=== PATIENT | male | born 1995 | race Caucasian/White ===

== ENCOUNTER 2020-08-19 07:01 | Emergency (ER) | payer OTHER, SELFPAY ==
[2020-08-19 07:03] VITALS: BP 143/87; PULSE 89; RESP 16; TEMP 36.7; O2SAT 100; BMI 30.7
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
--- NOTE | 2020-08-19 09:26 | ED.DEP ---
ED Disposition - Plan for ED Patient: Disposition: Home or Assisted Living Instructions: ED Jaw Fracture Prescriptions: Hydrocodone Bitart/Apap 5-325 [[place] 5MG-325MG] 1 - 2 tab PO Q4H PRN PRN 5 Days #20 tab PRN Reason: Pain Prescription Printed Referrals: Bryon Bernal DDS [STAFF PHYSICIAN] - As soon as possible Additional Instructions: Call Dr. Luca Bernal, he is a oral surgeon in [place] and he can fix your jaw fracture. Ice to your jaw. Motrin and limited [place] for pain.
== END 2020-08-19 09:46 | disposition home or self-care (01) ==
PROVIDERS: Emergency Provider Emergency Medicine
DX: S02.652A Fracture of angle of left mandible, initial encounter for closed fracture (principal); S16.1XXA Strain of muscle, fascia and tendon at neck level, initial encounter; S20.211A Contusion of right front wall of thorax, initial encounter; V80.918A Animal-rider injured in other transport accident, initial encounter; Y93.I9 Activity, other involving external motion; Y92.9 Unspecified place or not applicable; Y99.8 Other external cause status; Z72.0 Tobacco use
CPT/HCPCS: 70450; 70486; 71046; 72125; 99282

== ENCOUNTER 2020-08-27 11:54 | Day surgery (SDC) | payer OTHER, SELFPAY ==
[2020-08-27] VITALS (8 sets, daily range): BP systolic 107–131; BP diastolic 64–79; PULSE 57–88; RESP 12–16; TEMP 36.1–36.6; O2SAT 97–100; BMI 30.5
[2020-08-27] MEDS: Lactated Ringers 1,000 ML 100 ML IV ×2 (12:56→15:41)
[2020-08-27 13:08] LABS: Absolute Lymphocyte Count 1.54 X10^3/uL (0.83-4.51); Absolute Neutrophil Count 4.8 X10^3/uL (2.0-7.7); Basophil# 0.03 X10^3/uL; Basophil% 0.4 % (0-1); Eosinophil# 0.13 X10^3/uL; Eosinophils% 1.9 % (0-5); Hematocrit 42.4 % (40-54); Hemoglobin 14.7 g/dL (13.0-16.5); Lymphocyte # 1.54 X10^3/ul (4.0); Mean Corp Hgb Conc 34.7 g/dL (32-36); Mean Corpuscular Hgb 29.1 pg (27.0-32.0); Mean Corpuscular Volume 83.8 fL (80-94); Mean Platelet Vol. 9.7 fl (6.2-12.0); Monocyte# 0.53 X10^3/uL; Monocyte% 7.6 % (0-10); NRBC Flagged by Analyzer 0 % (0-5); Neutrophil # 4.76 X10^3/uL (2.7-7.7); Neutrophil % 67.8 % (47-70); Platelet Count 307 K/mm3 (150-450); RBC Distribution Width CV 11.9 % (11.6-14.6); RBC Distribution Width SD 35.9 fl (35.1-43.9); Red Blood Count 5.06 M/mm3 (4.6-6.2)
[2020-08-27] MEDS: Bupiv/Epi 0.5% Mpf 30 ML Vial (14:30)
[2020-08-27] MEDS: Lidocaine 2% /Epi 1:100 (50ml) 50 ML Vial (15:02)
--- NOTE | 2020-08-27 15:47 | OP.PCM_ITS ---
Problem List (1) Fracture, mandible Status: Acute (2) Fracture of mandible involving dental socket Status: Acute Report of Operation Date of Procedure: 08/27/20 Pre-Operative Diagnosis: Bilateral Mandible Fractures Surgery/Procedure Performed:: Closed reduction left mandibular condyle open reduction right mandibular body fracture Type of Anesthesia:: General Estimated Blood Loss (mL): minimal Fluids Replaced: see anesthesia report Description of Procedure: Patient identified in pre op hold area, where a detailed discussion involving the procedure was outlined as it was in my office. Patient agrees and consent obtained. Patient taken to operating room and placed in supine position on the t able. Monitors placed and attempted nasal intubation was aborted and an oral intubation was performed. After the patient was prepped and draped local anesthesia was administered in the vestibule of the maxilla and mandible. Gilmar arch bars were fashioned to fit and the bars stabilized to the dentition with 26 ga wire. The patient was then placed into IMF. After occlusion was verified an incision was made in the right mandibular body region and the fracture was stabilized with 26 gauge wire. The incision was closed. At this time the left subcondylar fracture was manipulated into the best approximation then the IMF was secured. The procedure went without complications and then the patient awakened in the OR and extubated. He was taken to the recovery room in stable condition.
[2020-08-27] MEDS: Ketorolac 30 MG/ML Syringe IV (16:42)
== END 2020-08-27 18:55 | disposition home or self-care (01) ==
LOC: SDC 11:54 → AC 11:55
PROVIDERS: Referring Provider Dentist Oral and Maxillofacial Surgery; Visit Provider Dentist Oral and Maxillofacial Surgery
PROC: (CPT 21451; principal; 2020-08-27 13:15)
DX: S02.601A Fracture of unspecified part of body of right mandible, initial encounter for closed fracture (principal); S02.612A Fracture of condylar process of left mandible, initial encounter for closed fracture; V80.919A Animal-rider injured in unspecified transport accident, initial encounter; Y93.I9 Activity, other involving external motion; Y92.9 Unspecified place or not applicable; Y99.8 Other external cause status; F17.200 Nicotine dependence, unspecified, uncomplicated; Z20.822 Contact with and (suspected) exposure to COVID-19
CPT/HCPCS: 00190; 21451; 21461; 85025; 87426; C9803; J7120; J2405

== ENCOUNTER 2022-04-01 09:07 | Day surgery (SDC) | payer OTHER, SELFPAY ==
[2022-04-01 09:47] VITALS: BP 125/58; PULSE 60; RESP 18; TEMP 36.7; O2SAT 100; BMI 28.6
[2022-04-01] MEDS: Lactated Ringers 1,000 ML 15 ML IV (10:03)
[2022-04-01] MEDS: Cefazolin 2 GM in 0.9% Normal Saline 100 ML IV (10:43)
--- NOTE | 2022-04-01 10:55 | RAD_ITS ---
INDICATION: FX EXAMINATION/TECHNIQUE: X-RAY - LEFT XR Wrist 2 Views 8 VIEWS COMPARISON: None. FLUOROSCOPY TIME: 8.3 seconds. FLUOROSCOPY DOSE: 0.27. MGy FINDINGS: 3 spot fluoroscopic images were obtained intraoperatively. Images demonstrate plate and screws internally fixating the radial diaphysis. No radiologist was present for the procedure, please refer to operative report for details. RAD/Wrist 2 Views IMPRESSION: Please refer to operative report for details. Electronically Signed: Jacob Nolasco MD at 13:30 EDT ,
[2022-04-01 12:38] VITALS: BP 125/58; BP 138/81; PULSE 69; RESP 17; TEMP 36.7; O2SAT 92
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
--- NOTE | 2022-04-01 12:41 | DCINST_ITS ---
Discharge Instructions Follow Up Care Test Results: Test results from this visit will be discussed in further detail at your follow- up appointment, if applicable. Discharge Plan Admission Primary Reason for Your Visit: Left forearm surgery Attending Provider: Gee Montejo Primary Care Provider: Care Physician,Katerina Primary Instructions Additional Instructions / Restrictions: Follow preprinted instructions from your surgeons office Discharge Orders/Prescriptions Prescriptions: No Action oxycodone-acetaminophen 5-325 mg tablet 1 tab PO Q6H PRN PRN (Reason: Pain) Label Comments: TAKE 1 TABLET BY MOUTH EVERY 6 HOURS NEEDED FOR PAIN Referrals / Follow Up: Gee Montejo DO [Med Staff - Active Staff] - Within 2 Weeks Care Physician,No Primary [Primary Care Provider] - Disposition Disposition (needs filled in before D/C Order can be placed): Home, Self Care
[2022-04-01 12:45] VITALS: BP 125/58; BP 133/68; PULSE 62; RESP 16; O2SAT 95
[2022-04-01] MEDS: Ketorolac 15 MG/ML Vial IV (12:52)
[2022-04-01 13:15] VITALS: BP 124/73; BP 125/58; PULSE 60; RESP 16; O2SAT 97
[2022-04-01 13:21] VITALS: BP 125/58; BP 125/73; PULSE 62; RESP 18; TEMP 36.3; O2SAT 96
[2022-04-01 13:30] VITALS: BP 125/58
== END 2022-04-01 14:04 | disposition home or self-care (01) ==
LOC: SDC 09:09 → AC 09:11
PROVIDERS: Referring Provider Student in an Organized Health Care Education/Training Program; Visit Provider Student in an Organized Health Care Education/Training Program
PROC: (CPT 25515; principal; 2022-04-01 10:45)
DX: S52.332A Displaced oblique fracture of shaft of left radius, initial encounter for closed fracture (principal); W50.0XXA Accidental hit or strike by another person, initial encounter; Y93.64 Activity, baseball; Y99.8 Other external cause status; F17.210 Nicotine dependence, cigarettes, uncomplicated; E66.3 Overweight; Z68.29 Body mass index [BMI] 29.0-29.9, adult; Z71.3 Dietary counseling and surveillance; R03.0 Elevated blood-pressure reading, without diagnosis of hypertension
CPT/HCPCS: 25515; 01830; 64417; 73100; 76000; C1776; J7120

== ENCOUNTER 2024-12-23 15:48 | Emergency (ER) | payer OTHER, SELFPAY ==
[2024-12-23 15:50] VITALS: BP 120/77; PULSE 76; RESP 16; TEMP 36.9; O2SAT 99; BMI 31.0
--- NOTE | 2024-12-23 16:00 | CM.ED ---
Social Work Date of referral: 12/23/24 Reason for referral: No PCP Referred by: Social Work identification Patient provided consent to social work visit. Straightening Machine Operator provided patient with a written handout for [facility] which patient accepted and expressed appreciation for. No other concerns/requests noted at this time. Luna Payan, ROTATING EQUIPMENT ENGINEER, [employer]
--- OUTSIDE RECORDS SUMMARY | 2024-12-23 16:09 | XMS RPT_ITS | CCD ---
Author Organization [facility] CliniSyvt Care Team Providers Care Genetic Supervisor Name Role Phone JED JIANG Unavailable Unavaila ble JED JIANG Unavailable Unavaila ble Spittle, Gee Referring Unavailable Spittle, Gee Attending Unavailable Care Physician, No Primary Primary Care Unava ilable SPITTLE, GEE DO Admitting Unavailable SPITTLE, GEE GUILLEN Attending Unavailable SPITTLE, GEE DO Primary Care Unavailable GEORGINA FRIEDMAN Consulting Unavailable PROVIDER, UNKNOWN Consulting Unavailable PROVIDER, UNKNOWN Consulting Unavailable PROVIDER, UNKNOWN Consulting Unavailable JESSICA, DR AGNES Blood Admitting Unavaila ble JESSICA, DR AGNES Blood Attending Unavaila ble JESSICA, DR AGNES Blood Primary Care Unavaila ble FRIEDMAN, GEORGINA Streeter Consulting Unavailable FRIEDMAN, GEORGINA Streeter Referring Unavailable PROVIDER, UNKNOWN Consulting Unavailable PROVIDER, UNKNOWN Consulting Unavailable PROVIDER, UNKNOWN Consulting Unavailable FRIEDMAN, DR WILLIAM Sewell Admitting Unavailable FRIEDMAN, DR WILLIAM Sewell Attending Unavailable FRIEDMAN, DR WILLIAM Sewell Primary Care Unavailable FRIEDMAN, GEORGINA T Consulting Unavailable PROVIDER, UNKNOWN Consulting Unavailable PROVIDER, UNKNOWN Consulting Unavailable PROVIDER, UNKNOWN Consulting Unavailable Medications Current Medications Medication Drug Class(es) Dates Sig (Normalized) Sig (Original) acetaminophen 325 mg / oxyCODONE hydrochloride 5 mg oral tablet (1 source) Opioid Agonist Start: 03-31-2022 take 1 tablet by mouth every six hours as needed Oxycodone-Acetami nophen Active 1 TABLET PO EVERY 6 HOURS NEEDED March 31, 2022 12:00am Completed/Discontinued Medications Medication Drug Class(es) Dates Sig (Normalized) Sig (Original) acetaminophen 325 mg / HYDROcodone bitartrate 5 mg oral tablet (1 source) Opioid Agonist Start: 08-19-2020 End: 08-24-2020 take 1 tablet by mouth every four hours as needed Hydrocodone-Acetami nophen Discontinued 1 - 2 TABLET PO EVERY 4 HOURS NEEDED 20 5 August 19, 2020 August 24, 2020 1:03am Problems Active Problems Problem Classification Problem Date Documented Da te Episodic/Chronic Fracture of upper limb (4 sources) Displaced oblique fracture of shaft of left radius, initial encounter for closed fracture; Translations: [Displaced oblique fracture of shaft of left radius, subsequent encounter for closed fracture with routine healing] Onset: 04-06-2022 Episodic Skull and face fractures (2 sources) Fracture of mandible involving dental socket; Translations: [Fracture of alveolus of mandible, unspecified side, initial encounter for closed fracture] Episodic Unclassified (1 source) Unknown / UNK(Unknown) Onset: 03-26-2017 Past or Other Problems Problem Classification Problem Date Documented Da te Episodic/Chronic Unclassified (1 source) SINUS ISSUES Onset: 03-26-2017 Results Test Name Value Interpretation Reference Range [facility] EMERGENCY REPORTon 2 EMERGENCY REPORT [facility] EMERGENCY ROOM REPORT NAME ACCOUNT SEX AGE ADMIT DISCHARGE PT MED. RECORD# NUMBER DATE DATE TYPE DENISE [id number] Kortney 26 03/28/22 03/28/22 3 LAWRENCE Mercedes [address] ROOM: ER DATE OF : 1995 DICTATING PHYSICIAN: William Friedman CHIEF COMPLAINT: Left arm pain. HISTORY OF PRESENT ILLNESS: The patient was seen here yesterday after a fracture sustained to the left forearm. He returns today stated that he is having more pain, especially since awakening this morning. He was afraid that maybe he slept on it wrong and it came out of place. The pain is across the forearm radiating down into the hand and fingers, particularly the thumb area. He has minimal tingling to the tips of his fingers. He is able to move his fingers, but has more pain moving his thumb today than he did yesterday. He did not have any known new injury or trauma to the arm. No other complaints. PAST MEDICAL HISTORY: Past medical history is significant for previous wrist fracture, but no ongoing medical problems. SOCIAL HISTORY: He does smoke. He does not drink alcohol. He is accompanied here with his . PHYSICAL EXAMINATION: GENERAL: This is a pleasant 27-year-old thin male alert, appropriate, and appears uncomfortable, but not toxic. SKIN: His skin is pink, warm, and dry. VITAL SIGNS: All within normal limits. EXTREMITIES: Exam is focused to the left upper extremity. Gross exam to the arm reveals a splinted and slinged left arm, and his hand and fingertips are pink, minimally cool, but good capillary refill. No gross deformity. I did remove the dressing, splint, and the sling to get a good view of the arm. There was no obvious deformity. He does have some mild, though not marked swelling at the forearm area and tenderness with palpation to the mid distal forearm diffusely. Skin is intact. He has good sensation distally. Range of motion is essentially normal, though with pain. No appreciable increased or severe pain with passive motion to his finger and thumb. DIAGNOSTIC DATA: A repeat x-ray was done which did not show any change from the x-ray of how things looked yesterday. EMERGENCY DEPARTMENT COURSE AND TREATMENT: I did give him a dose of Dilaudid and Toradol IV, which did help with his pain. He does have Percocet at home, which he took. I then placed a little more padding along the forearm and replaced his splint using 3-0 volar OCL splint along the forearm and a long arm posterior 5 inch OCL. Page 1 of 2 LAWRENCE WALKER Emergency Room Report LAWRENCE WALKER : 1995 He had complained of some discomfort at the elbow, and I used more padding in that area. There were no reddened or abnormal skin lesions seen. The splint was placed at about 90 degrees, and his forearm splint replaced. DIAGNOSIS: Left forearm fracture with ongoing pain, no evidence of any compartment syndrome or new injury. PLAN/DISPOSITION: He was discharged to home. He is to followup with [facility] tomorrow, calling in the morning for an appointment. He was referral to Dr. Montejo by Dr. Rojas yesterday. Ice and elevation to the area. Dictated By: William Friedman MD 03/28/22 11:32 JOB #: [id number] Transcribed By: am 03/29/22 12:41 Electronically signed by: LEVON Friedman M.D. 04/02/22 08:45 Page 2 of 2 LAWRENCE WALKER Emergency Room Report Normal [facility] Discharge Instructionon 03-12 Discharge Instruction [facility] Medical Records Department [address] [place] [address] Instructions for Home/Discharge Instructions 04/01/22 1241 MR#: [id number] Acct: [id number] Name: LAWRENCE WALKER Rep #: [id number] : 1995 26 From: Gee Montejo DO PCP: Care Physician,No Primary Status:[facility] Discharge Instructions Follow Up Care Test Results: Test results from this visit will be discussed in further detail at your follow-up appointment, if applicable. Discharge Plan Admission Primary Reason for Your Visit: Left forearm surgery Attending Provider: Gee Montejo Primary Care Provider: Care Physician,No Primary Instructions Additional Instructions / Restrictions: Follow preprinted instructions from your surgeons office Discharge Orders/Prescriptions Prescriptions: No Action oxycodone-acetaminoph en 5-325 mg tablet 1 tab PO Q6H PRN PRN (Reason: Pain) Label Comments: TAKE 1 TABLET BY MOUTH EVERY 6 HOURS NEEDED FOR PAIN Referrals / Follow Up: Gee Montejo DO [Med Staff - Active Staff] - Within 2 Weeks Care Physician,No Primary [Primary Care Provider] - Disposition Disposition (needs filled in before D/C Order can be placed): Home, Self Care 04/01/22 1241 Gee Montejo DO CC: No Primary Care Physician Signed [facility] Operative Reporton 2 Operative Report [facility] Medical Records Department [address] [place] [address] Operative Report 04/01/22 1241 MR#: [id number] Acct: [id number] Name: LAWRENCE WALKER Rep #: [id number] : 1995 26 From: Gee Montejo DO PCP: Care Physician,No Primary Status:[facility] Location: [place] [address] Report of Operation Date of Procedure: 04/01/22 Description of Surgical Findings:: Preoperative diagnosis: Left radial shaft fracture Postoperative diagnosis: Left radial shaft fracture Procedure: Open reduction internal fixation left radial shaft Surgeon: Gee Montejo DO Assembly Line Worker: Karen Morrison PA-C Anesthesia: General endotracheal with axillary block Anesthesiologist: Dr. Richard Complications: None Drains: None Estimated blood loss: 25 cc Urinary output: None recorded IV fluids: 800 cc crystalloid Specimens: None Surgical implants: Synthes 3.5 mm LCDC 7 hole plate with cortical screws x6 Surgical indications: This is an otherwise healthy 26-year-old male sustained a left forearm fracture playing baseball when he went for a fly ball with an extended gloved hand approximately 5 days ago. The glove hand sustained a axial load via the backstop. He noted immediate pain in his forearm. X-rays were obtained from [facility] demonstrated a displaced radial shaft fracture. The DRUJ appeared unremarkable on plain films. Patient was neurovascular intact. He was splinted. He followed-up in my office. Given the amount of angulation and risk of nonoperative management with regards to stiffness and loss of motion as well as nonunion, operative intervention in the form of left radius open reduction internal fixation was offered. The risks, benefits, alternatives to procedure reviewed with patient at length and he agreed to proceed. Risks included but were not limited to bleeding, flexion, loss of life or limb, need for additional surgery, persistent pain, persistent stiffness, neurovascular injury, DVT or PE. Patient expressed understanding his risk and wished proceed with surgery. Informed sent obtained in the outpatient setting. Description of procedure: Patient was seen in preoperative holding area. He was identified by name, medical record number, date of . The operative extremity was marked with a surgical marker. We confirmed informed consent with the patient and all questions were answered to his satisfaction. An axillary block was placed in the PACU by anesthesia staff for intraoperative and postoperative analgesia. At time of his procedure, patient was brought to the operative suite and positioned supine on a standard operating table. All bony prominences were well-padded. General anesthesia was administered and endotracheal tube placed. After adequate anesthesia, a well-padded pneumatic tourniquet was applied to the upper arm of the operative extremity. We then spun the bed 90 degrees. We prepped and draped the operative extremity in a normal, sterile orthopedic fashion. We then performed a timeout with all parties in attendance in agreement the side, site, and operation be performed. No concerns were voiced and we elected to proceed. 2 g Ancef IV was administered for antibiotic prophylaxis prior to the incision by anesthesia staff. I first exsanguinated the operative extremity with an Esmarch bandage. Tourniquet was inflated to 250 mmHg. Esmarch was removed. I planned a modified volar Wliy approach to the distal third of the radial shaft. Incision was marked in line with the radial styloid to the biceps tendon. Approximately 10 cm incision was made sharply through skin and subcutaneous tissue. Posterior carpi radialis volar tendon sheath was identified and split in line with the tendon. The tendon was retracted ulnarly. I split the deep fascia of the FCR tendon sheath. Flexor pollicis longus was encountered and its muscle belly was swept ulnarly. I then dissected the radial artery and accompanying veins. These were skeletonized and radial sided branches were ligated with bipolar cautery. I then identified the pronator quadratus which was able to be maintained given the level of the fracture. I then bluntly dissected proximally. I worked lateral to the neurovascular bundle. Brachioradialis was retracted radially. Pronator teres insertion was identified and elevated with a Osborn elevator. Fracture site was encountered. Fracture site was debrided from interposed periosteum and debris was irrigated free. I anatomically reduced the fracture site with a pointed reduction tenaculum. A 7 hole 3.5 mm LCDC plate was selected from [employer]. This was held in place provisionally with lobster claws. I drilled a concentric cortical screw in the distal segment to compress the plate to bone. I then fine-tune our reduction confirm anatomic reduction. I placed an eccentric compression bicortical kiera (more content not included)... [facility] Wrist 2 Viewson 04-01-2022 Wrist 2 Views [facility] Imaging Services [address] [place] [address] Wrist 2 Views MR#: [id number] Acct: [id number] Name: LAWRENCE WALKER Rep #: [id number] : 1995 M 26 From: Jacob Nolasco MD PCP: Care Physician,No Primary Status: [facility] Study: Wrist 2 Views Date of Exam: 04/01/22 Exam# [id number] Ordering Dr: Gee Montejo DO INDICATION: FX EXAMINATION/TECHNIQUE : X-RAY - LEFT XR Wrist 2 Views 8 VIEWS COMPARISON: None. FLUOROSCOPY TIME: 8.3 seconds. FLUOROSCOPY DOSE: 0.27. MGy __ FINDINGS: 3 spot fluoroscopic images were obtained intraoperatively. Images demonstrate plate and screws internally fixating the radial diaphysis. No radiologist was present for the procedure, please refer to operative report for details. RAD/Wrist 2 Views IMPRESSION: Please refer to operative report for details. Electronically Signed: Jacob Nolasco MD at 13:30 EDT , CC: Dr. Gee Montejo, DO; No Primary Care Physician Cartographic Engineer: Signed [facility] EMERGENCY REPORTon 2 EMERGENCY REPORT [facility] EMERGENCY ROOM REPORT NAME ACCOUNT SEX AGE ADMIT DISCHARGE PT MED. RECORD# NUMBER DATE DATE TYPE DENISE [id number] Kortney 26 03/27/22 03/27/22 3 LAWRENCE Mercedes [address] ROOM: ER DATE OF : 1995 DICTATING PHYSICIAN: Agnes Lopez CHIEF COMPLAINT/HISTORY OF PRESENT ILLNESS: Patient was playing softball early this morning and he ran into a backstop with his glove hand. He had pain in his arm around the radial aspect and presents to the emergency department. His pain is a 9 out of 10, worse with movement, better with rest. He is right hand dominant and presents to the emergency department. He did have a fracture of his right wrist in the past which required surgery. He actually said the pain is an 8 out of 10. It is a constant pain, sharp, stabbing, worse with movement, better with rest and presented to the emergency department. He does have some tingling to the right thumb. PAST SURGICAL HISTORY: He has had pins in his wrist. SOCIAL HISTORY: He does smoke. Denies alcohol use. REVIEW OF SYSTEMS: Ten systems reviewed and negative except mentioned above. PHYSICAL EXAMINATION: VITAL SIGNS: He is afebrile. Pulse 62, respirations 16, blood pressure 118/83, pulse oximetry 98% on room air. HEENT: Head is normocephalic, atraumatic. Eyes; pupils equal, round, active to light. Extraocular muscles intact. Nares are patent. Throat has adequate oral moisture. Uvula is midline. NECK: Supple without petechiae or rash. HEART: Without murmur. S1 equals S2. No S3 or S4 appreciated. LUNGS: Clear to auscultation bilaterally. No rales, rhonchi or retractions. ABDOMEN: Soft, nontender, nondistended. SKIN: Warm and dry. EMERGENCY DEPARTMENT COURSE AND TREATMENT: Risks and benefits were explained for reducing the patient. I gave him pain medication of Dilaudid. He was placed in traction with splint, which actually did improve the angulation on his radius. I did try to make it better and I did improve it but then I came off and one was even actually worse. It is improved with his angulation. I discuss this multiple times with Dr. Rojas. He does have some tingling in his thumb, it is unclear. That might be from the medication that I gave him. He is able to move his thumb. He is neurovascularly intact. Before I did try to reduce it, I was in the traction, I did anesthetize with Sensorcaine infused into the area where the fracture was. He was otherwise neurovascularly intact. At this time he will be discharged. I do not suspect he has compartment syndrome. He has no tenderness at the proximal aspect of the forearm. Dr. Rojas wanted to have him follow up with Dr. Montejo. He is to follow up with Dr. Montejo. Keep it iced, elevated, and return if increasing pain, problems, numbness or tingling. Will write him for Percocet for Page 1 of 2 LAWRENCE WALKER Emergency Room Report LAWRENCE WALKER : 1995 severe pain as well as Motrin for pain. DIAGNOSIS: Fracture radius, forearm fracture. PLAN/DISPOSITION: He will be discharged in stable condition. Dictated By: Agnes Lopez DO 03/27/22 12:24 JOB #: [id number] Transcribed By: adrien 03/28/22 08:58 Electronically signed by: LEVON Lopez DO 03/29/22 09:57 Page 2 of 2 LAWRENCE WALKER Emergency Room Report Normal [facility] 03-28-2022 [place] [address] Patient: LAWRENCE WALKER Phone#: : 1995 Age: 26 Gender: M Pt. Type: ER Account: [id number] Location: 052 Ordering: WILLIAM MORTOND Exam Date: 03/28/2022/10:14 Family Phys: GEORGINA FRIEDMAN Charge Code: [id number] Physician: Latah Order #: [id number] DLP Dose#: PROCEDURE: X-RAY FOREARM LT 2 VIEWS COMPARISON: [facility], XR, FOREARM LT, 03/27/2022, 11:12. INDICATIONS: Trauma. FINDINGS: BONES: Nondisplaced dorsally angulated fracture the mid radius is present. The joint space at the wrist and elbow are maintained. SOFT TISSUES: Negative. No visible soft tissue swelling. EFFUSION: None visible. OTHER: Negative. CONCLUSION: 1. Nondisplaced mildly dorsally angulated fracture of the mid radius. There has been no significant change since prior exam. Dictated by: Faiza Nguyen MD on 03/28/2022 at 15:31 Approved by: Faiza Nguyen MD on 03/28/2022 at 15:33 Normal [facility] FOREARM LTon 03-27-2022 FOREARM LT [address] [address] Patient: LAWRENCE WALKER Phone#: : 1995 Age: 26 Gender: M Pt. Type: ER Account: [id number] Location: 052 Ordering: AGNES LOPEZ Exam Date: 03/27/2022/11:12 Family Phys: GEORGINA MORTOND Charge Code: [id number] Physician: Latah Order #: [id number] DLP Dose#: PROCEDURE: X-RAY FOREARM LT 2 VIEWS COMPARISON: [facility], XR, FOREARM LT, 03/27/2022, 10:06. INDICATIONS: Post reduction. FINDINGS: BONES: Improved alignment. There is mild dorsal angulation of the distal fracture fragment of the mid radial fracture. There is mild lateral angulation at the fracture. Splint material somewhat obscures osseous detail. SOFT TISSUES: Negative. No visible soft tissue swelling. EFFUSION: None visible. OTHER: Negative. CONCLUSION: 1. Mild dorsal angulation of the distal fracture fragment of the mid radial fracture. Mild lateral angulation at the fracture. Dictated by: Madelin Munoz MD on 03/27/2022 at 16:49 Approved by: Madelin Munoz MD on 03/27/2022 at 16:52 [facility] FOREARM LT [address] [address] Patient: WALKER LAWRENCE Nadege Phone#: : 1995 Age: 26 Gender: M Pt. Type: ER Account: [id number] Location: [facility] Ordering: AGNES LOPEZ Exam Date: 03/27/2022/10:06 Family Phys: GEORGINA IDALIA Charge Code: [id number] Physician: Latah Order #: [id number] DLP Dose#: PROCEDURE: X-RAY FOREARM LT 2 VIEWS COMPARISON: [facility], XR, FOREARM LT, 03/27/2022, 9:32. INDICATIONS: Post reduction. FINDINGS: BONES: Multiple lateral views obtained. The final image demonstrates mild anterior angulation of the mid radial fracture. Overlying splint material somewhat obscures osseous detail. SOFT TISSUES: Negative. No visible soft tissue swelling. EFFUSION: None visible. OTHER: Negative. CONCLUSION: 1. Mild anterior angulation of the mid radial fracture following reduction Dictated by: Madelin Munoz MD on 03/27/2022 at 16:41 Approved by: Madelin Munoz MD on 03/27/2022 at 16:44 [facility] FOREARM LT [address] [address] Patient: WALKER LAWRENCE L. Phone#: : 1995 Age: 26 Gender: M Pt. Type: ER Account: [id number] Location: 052 Ordering: AGNES LOPEZ Exam Date: 03/27/2022/9:32 Family Phys: GEORGINA FRIEDMAN Charge Code: [id number] Physician: Latah Order #: [id number] DLP Dose#: PROCEDURE: X-RAY FOREARM LT 2 VIEWS COMPARISON: [facility], XR, FOREARM LT, 03/27/2022, 8:41. INDICATIONS: Post reduction. FINDINGS: BONES: Mid radial fracture improved alignment following reduction with persistent anterior angulation and mild lateral angulation SOFT TISSUES: Negative. No visible soft tissue swelling. EFFUSION: None visible. OTHER: Negative. CONCLUSION: 1. Improved but persistent anterior angulation mid radial fracture. Dictated by: Madelin Munoz MD on 03/27/2022 at 16:40 Approved by: Madelin Munoz MD on 03/27/2022 at 16:41 [facility] FOREARM LT [address] [address] Patient: LAWRENCE WALKER Phone#: : 1995 Age: 26 Gender: M Pt. Type: ER Account: [id number] Location: 052 Ordering: [facility] Exam Date: 03/27/2022/8:41 Family Phys: Charge Code: [id number] Physician: Latah Order #: [id number] DLP Dose#: PROCEDURE: X-RAY FOREARM LT 2 VIEWS COMPARISON: None. INDICATIONS: Trauma. FINDINGS: BONES: Fracture of the mid to distal radius. The fracture fragment is laterally and dorsally angulated. The ulna is intact. SOFT TISSUES: Negative. No visible soft tissue swelling. EFFUSION: None visible. OTHER: Negative. CONCLUSION: 1. Fracture of the mid radius with lateral and anterior angulation Dictated by: Madelin Munoz MD on 03/27/2022 at 14:40 Approved by: Madelin Munoz MD on 03/27/2022 at 14:41 [facility] WRIST COMPLETE LTon 03-27-20 WRIST COMPLETE LT [address] [address] Patient: LAWRENCE WALKER Phone#: : 1995 Age: 26 Gender: M Pt. Type: ER Account: [id number] Location: 052 Ordering: AGNES LOPEZ Exam Date: 03/27/2022/8:34 Family Phys: Charge Code: [id number] Physician: Latah Order #: [id number] DLP Dose#: PROCEDURE: X-RAY WRIST LT COMPLETE MIN 3 VIEWS COMPARISON: None. INDICATIONS: Arm injury. FINDINGS: BONES: Fracture of the mid to distal radius, incompletely evaluated on this exam. No acute osseous abnormality of the wrist. SOFT TISSUES: Negative. No visible soft tissue swelling. EFFUSION: None visible. OTHER: Negative. CONCLUSION: 1. No acute osseous abnormality of the wrist. Note: An acute wrist fracture may not be initially evident on radiograph. If there is persistent pain in 7-10 days recommend repeat radiograph. 2. Mid to distal radial fracture, please refer to forearm report performed same day. Dictated by: Madelin Munoz MD on 03/27/2022 at 14:39 Approved by: Madelin Munoz MD on 03/27/2022 at 14:40 Normal [facility] Vital Signs Date Time Vital Sign Value Performing Clinician Kin neal 04-01-2022 13:21-0400 Body temperature 97.4 [degF] [facility] Work Phone: 04-01-2022 13:21-0400 Diastolic blood pressure 73 mm[Hg] [facility] Work Phone: 04-01-2022 13:21-0400 Heart rate 62 /min [facility] Work Phone: 04-01-2022 13:21-0400 Respiratory rate 18 /min [facility] Work Phone: 04-01-2022 13:21-0400 SaO2% (BldA) [Mass fraction] 96 % [facility] Work Phone: 04-01-2022 13:21-0400 Systolic blood pressure 125 mm[Hg] [facility] Work Phone: 04-01-2022 09:47-0400 Body height 175.26 cm [facility] Work Phone: 04-01-2022 09:47-0400 Body mass index (BMI) [Ratio] 28.6 kg/m2 [facility] Work Phone: 04-01-2022 09:47-0400 Body weight 87.99 kg [facility] Work Phone: Encounters Encounter Date Encounter Type Care Provider Facility Start: 04-14-2022 End: 06-21-2022 ambulatory [facility] Start: 04-01-2022 End: 04-01-2022 ambulatory [facility] Facility:[facility] Start: 04-01-2022 End: 04-01-2022 Admission to same day surgery center [facility] Start: 04-01-2022 End: 04-01-2022 ambulatory [facility] Work Phone: Start: 03-28-2022 End: 03-28-2022 Emergency department patient visit DR WILLIAM FRIEDMAN [facility] Start: 03-27-2022 End: 03-27-2022 Emergency department patient visit DR AGNES LOPEZ [facility] Start: 03-26-2017 Ambulatory PATRICA-BO JIANG Facility:[facility] Procedures Date Procedure Procedure Detail Performing Clinician Start: 04-01-2022 Open reduction of fr acture of radius with internal fixation Start: 04-01-2022 Fluoroscopic guidance Start: 04-01-2022 Plain x-ray of wrist Plan of Treatment Date Care Activity Detail Author Start: 04-01-2022 Application of ice c ollar, cap or bag [facility] Work Phone: Start: 04-01-2022 Catheterization of vein [facility] Work Phone: Start: 04-01-2022 Elevation of affected extremity [facility] Work Phone: Start: 04-01-2022 Following clinical p athway protocol [facility] Work Phone: Start: 04-01-2022 Patient discharge [facility] Work Phone: Start: 04-01-2022 Procedure discontinued [facility] Work Phone: Start: 04-01-2022 Taking patient vital signs [facility] Work Phone: Start: 04-01-2022 Vital signs measurements [facility] Work Phone: Start: 04-01-2022 [place] [facility] Work Phone: Start: 04-01-2022 Medication education [facility] Work Phone: Patient referral [facility] Work Phone: Payers Date Payer Category Payer Self-pay [id number] 2022 Unknown [id number] 1993 Unknown [id number] 1995 Unknown [id number] 1993 Unknown [id number] Unknown [id number] Social History Date Type Detail Facility Start: 04-01-2022 Tobacco smoking stat [facility] Unknown if ever smoked [facility] Work Phone: Start: 08-25-2020 Cigarettes;Vapor [facility] Work Phone: Start: 1995 Sex Assigned At Male [facility] Work Phone: Goals Date Patient Goal Desired Activity /State Mental Status Date Assessment Result Facility 04-01-2022 Cognitive function Voice/Name [place] [facility]: Evaluation note Note Date & Type Note Facility Evaluation note No assessment information availa ble [facility] Work Phone: Hospital Discharge instructions Note Date & Type Note Facility Hospital Discharge instructions Additional Instructions Follow preprinted instructions from your surgeons office Implant Used?: Yes [facility] Work Phone: Summary Purpose Family History No Family History Records FoundNo Family History Records FoundNo Family History Records Found Advance Directives No Advanced Directives Records Found Advance Directive Response Recorded Date/ Time Living Will No April 01, 2022 9:27am Power of Sewing Machine Attachment Tester No March 9:27am Additional Source Comments (unrecognized sect ion and content) No Status Records FoundNo Status Records FoundNo Status Records Found INFORMATION SOURCE (unrecogn ized section and content) DATE CREATED AUTHOR 01/04/2018 [facility] DATE CREATED AUTHOR AUTHOR'S ORGANIZ ATION 04/11/2022 [facility] DATE CREATED AUTHOR AUTHOR'S ORGANIZ ATION 06/21/2022 [facility] FOR RECORDS PERTAINING TO PATIENTS WHO ARE OR HAVE BEEN ENROLLED IN A CHEMICAL DEPENDENCY/SUBSTANCEABUSE PROGRAM, SOME INFORMATION MAY BE OMITTED. This clinical summary was aggregated from multiple sources. Caution should be exercised in using it in the provision of clinical care. This summary normalizes information from multiple sources, and as a consequence, information in this document may materially change the coding, format and clinical context of patient data. In addition, data may be omitted in some cases. CLINICAL DECISIONS SHOULD BE BASED ON THE PRIMARY CLINICAL RECORDS. [facility] [employer] [facility]. provides no warranty or guarantee of the accuracy or completeness of information in this document.
--- NOTE | 2024-12-23 17:01 | EDS_ITS ---
HPI History of Present Illness HPI Narrative: Patient presents with pain to his left posterior thigh that occurred 2 days ago. Patient states he was playing ball and felt something pop in his posterior thigh at that time. Patient describes the pain as sharp and burning. Patient states it is worse with extension of his knee and the hip. Patient states it is better with flexion of his knee. Patient denies any paresthesias or weakness. Patient also states that he is having difficulty bearing weight because of the pain. Patient denies any other injuries. Chief Complaint: Lower Extremity Injury Onset/Context/Timing Onset: Days (2 days ago) Context: Sudden Onset Timing: Continuous Quality of Pain: Sharp and Burning Location: Left posterior thigh Worsened by: Flexion of hip and extension of knee Relieved by: Flexion of the knee and rest Associated Symptoms Associated Symptoms: Negative for Parasthesia, Weakness or Loss of Funtion PFSH [facility] Medical History Wears glasses Alcohol use Gastric reflux Smoker PONV (postoperative nausea and vomiting) Home Medications ?Medication ?Instructions ?Recorded ?Last Taken ?Type naproxen 500 mg tablet (Naprosyn) 500 mg PO BID PRN pa in #20 tabs 12/23/24 Unknown Rx Allergy/AdvReac Type Severity Reaction Status Date / Time No Known Allergies Allergy Verified 12/23/24 15:52 Surgical History History of surgery on arm History of mandibular surgery Social History Smoking Status: Current every day smoker tobacco type: cigarettes ROS ROS ED Constitutional Constitutional ED: Denies chills or fever(s) Eyes Eyes: Denies blurry vision or change in vision ENT ENT ED: Denies rhinorrhea or sore throat Cardiovascular Cardiovascular: Denies chest pain or palpitations Respiratory/Chest Respiratory/Chest: Denies cough or dyspnea Gastrointestinal Gastrointestinal: Denies nausea or vomiting Genitourinary Genitourinary ED: Denies dysuria or hematuria Musculoskeletal Musculoskeletal: Denies back pain or neck pain Integumentary Denies abscess or rash Neurologic Neurologic: Denies headache(s) or weakness Allergic/Immunologic Allergic/Immunologic ED: Denies mouth swelling or urticaria EXAM Physical Exam Const Vital Signs: 12/23/24 15:50 Temperature 98.4 F Temperature Source Oral Pulse Rate 76 Respiratory Rate 16 Blood Pressure 120/77 Blood Pressure Mean 91 Pulse Ox 99 Oxygen Delivery Method Room Air Positive well nourished and well developed General Appearance ED: well developed and NAD HEENT Reports moist mucous membranes normocephalic and atraumatic Neck full ROM and supple Extremity Extremity Narrative: There is tenderness over the posterior aspect of the left flank. There is no edema or ecchymosis. There is no bony crepitance or step-off. There is no pain over the left hip or left knee. Range of motion was limited in extension of the left knee secondary to pain. There is no pain with internal or external rotation of the left hip. There is pain with resistive flexion of the knee and resistive extension of the hip. Strength is 5/5 bilateral in the lower extremities. There are no sensory deficits noted. Pedal pulses are equal bilaterally. Neuro oriented x3, CN's II-XII intact bilaterally, moves all extremities and no sensory deficits noted Sensorium / Orientation: alert Motor Exam: strength 5/5 throughout Psych mental status grossly normal MDM MDM MDM Narrative Medical decision making narrative: Smoking cessation was briefly discussed. Patient was advised that this is most likely a muscle strain of his hamstring muscles. Patient was instructed to use ice to the area. Patient was given a prescription for Naprosyn. Patient was given his first dose here. Patient was instructed to follow-up with a primary care physician in 5 to 7 days. Patient was instructed to return if worse in any way. Patient understood and was agreeable with the plan. All questions were answered. Discharge Plan Triage Chief Complaint: Lower Extremity Injury ED Provider: Vince Childs Dx/Rx/DC Orders Clinical Impression: Strain of left hamstring muscle, Tobacco use Instructions: ED Muscle Strain, Extremity Prescriptions: New naproxen [Naprosyn] 500 mg tablet 500 mg PO BID PRN (Reason: pain) Qty: 20 0RF Primary Care Provider: Care Physician,No Primary Referrals: Marbin Adrian MD [Med Staff - Blood Bank Attendant] - 5-7 Days Care Physician,No Primary [Primary Care Provider] - Activity Restrictions/Additional Instructions: If you stop smoking, this may heal faster. Use ice to the area. Keep your leg elevated. Print Language: Ivorian Disposition Disposition: Home, Self Care
== END 2024-12-23 17:18 | disposition home or self-care (01) ==
PROVIDERS: Emergency Provider Emergency Medicine; Visit Provider Emergency Medicine
DX: S76.312A Strain of muscle, fascia and tendon of the posterior muscle group at thigh level, left thigh, initial encounter (principal); X58.XXXA Exposure to other specified factors, initial encounter; F17.210 Nicotine dependence, cigarettes, uncomplicated
CPT/HCPCS: 99282